=== PATIENT | female | born 1985 | race Caucasian/White ===

== ENCOUNTER → 2016-08-25 | Outpatient (CLI) | payer OTHER ==
[~2016-08-25] MED LIST: CITALOPRAM20 MG PO; CITALOPRAM40 MG PO; IBU800 M1 PO; KLONOPIN 0.5MG0.5 MG PO; PREDNISONE20 MG PO
== END ==
LOC: LAB 19:34
DX: R30.0 Dysuria (principal); B96.20 Unspecified Escherichia coli [E. coli] as the cause of diseases classified elsewhere

== ENCOUNTER → 2016-09-15 | Outpatient (CLI) | payer OTHER ==
[2016-01-31 22:38] VITALS: BP 130/76
== END ==
LOC: RAD 19:44
DX: R07.82 Intercostal pain (principal)

== ENCOUNTER 2016-09-28 13:15 | Emergency (ER) | payer OTHER ==
[~2016-09-28 13:15] MED LIST changes: -CITALOPRAM40 MG PO; -IBU800 M1 PO; -KLONOPIN 0.5MG0.5 MG PO
[2016-09-28] MEDS ORDERED: IBU800 M1 PO (15:41)
[2016-09-28] MEDS ORDERED: CITALOPRAM40 MG PO (15:41)
[2016-09-28] MEDS ORDERED: KLONOPIN 0.5MG0.5 MG PO (15:41)
[2016-09-28 16:02] VITALS: BP 132/87
== END 2016-09-28 15:46 | disposition home or self-care (01) ==
LOC: ED 13:15
DX: F41.9 Anxiety disorder, unspecified (principal); M94.0 Chondrocostal junction syndrome [Tietze]; R07.89 Other chest pain

== ENCOUNTER → 2017-03-31 | Outpatient (CLI) | payer OTHER ==
[~2017-03-31] MED LIST changes: +BACTRIM 400 MG-1 TA1 PO; +CITALOPRAM40 MG PO; +IBU800 M1 PO; +KLONOPIN 0.5MG0.5 MG PO
[2017-03-31 14:30] LABS: EOS # 0.2 (0.04-0.40); EOS % 1.6 % (1.0-5.0); HEMATOCRIT 41.4 % (37.0-47.0); HEMOGLOBIN 13.9 g/dL (12.5-16.0); LYMPH# 1.9 (1.50-4.00); MEAN CELL VOLUME 92 fl (78-100); MEAN CORPUSCULAR HEMOGLOBIN 31 pg (27-31); MEAN CORPUSCULAR HGB CONC 34 g/dL (33-37); MEAN PLATELET VOLUME 10.1 fl (7.4-10.4); MONO # 0.9 (0.20-0.80); PLATELET COUNT 264 K/mm3 (130-400); RED CELL DISTRIBUTION WIDTH 13.6 % (11.5-14.5); WHITE BLOOD COUNT 11.1 K/mm3 (4.8-10.8)
[2017-03-31 14:47] LABS: ALBUMIN 4.3 g/dL (3.5-5.0); BUN/CREATININE RATIO 18.1 (6.0-26.0); CALCIUM 9.9 mg/dL (8.4-10.2); POTASSIUM 3.9 mmol/L (3.6-5.0); TOTAL BILIRUBIN 0.5 mg/dL (0.2-1.3); TOTAL PROTEIN 7.5 g/dL (6.3-8.2)
== END ==
LOC: LAB 14:17
PROVIDERS: Internal Medicine
DX: J45.909 Unspecified asthma, uncomplicated (principal); R00.0 Tachycardia, unspecified; J01.90 Acute sinusitis, unspecified; J20.9 Acute bronchitis, unspecified

== ENCOUNTER → 2017-04-01 | Outpatient (CLI) | payer OTHER ==
[~2017-04-01] VITALS: Ht 157.5 cm; Wt 86.4 kg
[2017-04-01 22:42] VITALS: BP 111/71
== END ==
LOC: AMSURD 22:42
DX: R00.0 Tachycardia, unspecified (principal)

== ENCOUNTER → 2017-06-30 | Outpatient (CLI) | payer SELFPAY ==
[2017-04-01 22:42] VITALS: BP 111/71
== END ==
LOC: CANPRECLI → LAB 18:57
DX: Z01.89 Encounter for other specified special examinations (principal)

== ENCOUNTER → 2017-07-05 | Outpatient (CLI) | payer SELFPAY ==
[2017-04-01 22:42] VITALS: BP 111/71
[2017-07-06 12:41] LABS: C-REACTIVE PROTEIN XXX
[2017-07-07 00:56] LABS: ANA SCREEN with REFLEX Negative (Negative)
[2017-07-07 12:50] LABS: LYME DISEASE ANTIBODIES Negative (Negative)
== END ==
LOC: LAB 17:53
PROVIDERS: Internal Medicine
DX: R20.2 Paresthesia of skin (principal); R53.83 Other fatigue; M79.1 Myalgia

== ENCOUNTER → 2017-09-19 | Outpatient (CLI) | payer SELFPAY ==
[2017-04-01 22:42] VITALS: BP 111/71
== END ==
LOC: LAB 15:49
DX: K90.89 Other intestinal malabsorption (principal); R30.0 Dysuria; Z88.1 Allergy status to other antibiotic agents

== ENCOUNTER → 2018-09-26 | Outpatient (CLI) | payer BC ==
[2017-11-14 18:38] VITALS: BP 118/70
[~2018-09-26] MED LIST changes: +CELEXA 20MG20 MG/TA1 PO; -CITALOPRAM20 MG PO; +MACROBID 100 M100 MG PO; +NEURONTIN300 M1 PO; +TYLENOL 500MG500 MG PO
[2018-09-26 18:41] LABS: ALBUMIN 4.2 g/dL (3.5-5.0); CALCIUM 9.6 mg/dL (8.4-10.2); POTASSIUM 3.8 mmol/L (3.5-5.1); TOTAL BILIRUBIN 0.3 mg/dL (0.2-1.2)
== END ==
LOC: LAB 16:43
PROVIDERS: Internal Medicine
DX: K90.9 Intestinal malabsorption, unspecified (principal); R07.81 Pleurodynia; M79.10 Myalgia, unspecified site; R20.2 Paresthesia of skin; R53.83 Other fatigue; W19.XXXA Unspecified fall, initial encounter

== ENCOUNTER → 2018-11-28 | Outpatient (CLI) | payer BC ==
[2017-11-14 18:38] VITALS: BP 118/70
[~2018-11-28] MED LIST changes: +KLONOPIN 1MG1 MG PO; +VENLAFAXINE HCL75 M3 PO
[2018-11-28 14:53] LABS: EOS # 0.1 (0.04-0.40); EOS % 1.2 % (1.0-5.0); HEMATOCRIT 39.4 % (37.0-47.0); HEMOGLOBIN 12.7 g/dL (12.5-16.0); LYMPH# 2.4 (1.50-4.00); MEAN CELL VOLUME 97 fl (78-100); MEAN CORPUSCULAR HEMOGLOBIN 31 pg (27-31); MEAN CORPUSCULAR HGB CONC 32 g/dL (33-37); MEAN PLATELET VOLUME 9.8 fl (7.4-10.4); MONO # 0.6 (0.20-0.80); NEU # 5.9 (1.40-6.50); PLATELET COUNT 281 K/mm3 (130-400); RED BLOOD COUNT 4.07 M/mm3 (4.10-5.30); RED CELL DISTRIBUTION WIDTH 13.6 % (11.5-14.5)
[2018-11-28 15:13] LABS: PARTIAL THROMBOPLASTIN TIME 25.1 SECONDS (21.0-32.0); PROTHROMBIN TIME 9.1 SECONDS (9.0-12.0)
[2018-11-28 16:13] LABS: ERYTHROCYTE SEDIMENTATION RATE 10 mm/hr (0-20)
== END ==
LOC: LAB 14:33
PROVIDERS: Internal Medicine
DX: R23.3 Spontaneous ecchymoses (principal)

== ENCOUNTER 2019-01-24 16:00 | Outpatient (RCR) | payer BC ==
[2017-11-14 18:38] VITALS: BP 118/70
== END 2019-01-24 16:30 | disposition still patient (30) ==
LOC: PT 16:00
DX: M79.7 Fibromyalgia (principal); M54.5 Low back pain; R53.1 Weakness

== ENCOUNTER → 2019-03-23 | Outpatient (CLI) | payer BC ==
[2018-12-04 17:12] VITALS: BP 112/60
[2019-03-23 14:21] LABS: EOS # 0.1 (0.04-0.40); EOS % 0.8 % (1.0-5.0); HEMATOCRIT 41.8 % (37.0-47.0); HEMOGLOBIN 13.8 g/dL (12.5-16.0); LYMPH# 2.3 (1.50-4.00); MEAN CELL VOLUME 94 fl (78-100); MEAN CORPUSCULAR HEMOGLOBIN 31 pg (27-31); MEAN CORPUSCULAR HGB CONC 33 g/dL (33-37); MEAN PLATELET VOLUME 9.8 fl (7.4-10.4); MONO # 0.6 (0.20-0.80); NEU # 4.7 (1.40-6.50); PLATELET COUNT 296 K/mm3 (130-400); RED BLOOD COUNT 4.43 M/mm3 (4.10-5.30); RED CELL DISTRIBUTION WIDTH 13.1 % (11.5-14.5); WHITE BLOOD COUNT 7.7 K/mm3 (4.8-10.8)
[2019-03-23 14:28] LABS: ALBUMIN 4.3 g/dL (3.5-5.0); POTASSIUM 3.8 mmol/L (3.5-5.1)
[2019-03-23 14:30] LABS: CALCIUM 9.4 mg/dL (8.3-10.5)
[2019-03-23 14:31] LABS: TOTAL PROTEIN 7.4 g/dL (6.4-8.3)
[2019-03-23 14:33] LABS: TOTAL BILIRUBIN 0.2 mg/dL (0.2-1.2)
== END ==
LOC: LAB 14:03
PROVIDERS: Internal Medicine
DX: F41.0 Panic disorder [episodic paroxysmal anxiety] (principal); M79.7 Fibromyalgia; J45.909 Unspecified asthma, uncomplicated

== ENCOUNTER → 2019-03-30 | Outpatient (CLI) | payer BC ==
[2018-12-04 17:12] VITALS: BP 112/60
== END ==
LOC: RAD 14:23
DX: R06.02 Shortness of breath (principal); R05 Cough

== ENCOUNTER 2019-09-02 13:30 | Emergency (ER) | payer SELFPAY ==
[~2019-09-02 13:30] MED LIST changes: +AMBIEN5 M1 PO; +BENZTROPINE1 MG PO; +GABAPENTIN TAB600 MG PO; +INDERAL 10MG10 MG PO; +NALTREXONE HYDR50 MG; +REMERON15 MG PO; -TYLENOL 500MG500 MG PO; +TYLENOL EXTRA500 M2 PO; +ULTRAM50 M1 PO
[2019-09-02] MEDS ORDERED: ATIVAN1 M1 PO (13:49)
[2019-09-02] MEDS ORDERED: VRAYLAR1.5 MG PO (13:53)
[2019-09-02] MEDS ORDERED: NALTREXONE (13:55)
[2019-09-02] MEDS ORDERED: TRIAZOLAM0.125 MG PO (13:58)
[2019-09-02 15:14] VITALS: BP 126/78
== END 2019-09-02 15:14 | disposition home or self-care (01) ==
LOC: ED 13:30
DX: F41.0 Panic disorder [episodic paroxysmal anxiety] (principal); F17.210 Nicotine dependence, cigarettes, uncomplicated

== ENCOUNTER → 2019-09-14 | Outpatient (CLI) | payer SELFPAY ==
[2019-09-02 15:14] VITALS: BP 126/78
[~2019-09-14] MED LIST changes: +ATIVAN1 M1 PO; +NALTREXONE; +TRIAZOLAM0.125 MG PO; +VRAYLAR1.5 MG PO
== END ==
LOC: LAB 12:50
DX: K90.9 Intestinal malabsorption, unspecified (principal); M79.10 Myalgia, unspecified site; R20.2 Paresthesia of skin; R53.83 Other fatigue

== ENCOUNTER 2019-09-22 12:18 | Emergency (ER) | payer SELFPAY ==
[~2019-09-22] VITALS: Ht 157.5 cm; Wt 76.6 kg
[2019-09-22 13:24] LABS: EOS % 0.3 % (1.0-5.0); HEMATOCRIT 41.4 % (37.0-47.0); HEMOGLOBIN 13.3 g/dL (12.5-16.0); LYMPH# 1.7 (1.50-4.00); MEAN CELL VOLUME 95 fl (78-100); MEAN CORPUSCULAR HEMOGLOBIN 31 pg (27-31); MEAN CORPUSCULAR HGB CONC 32 g/dL (33-37); MEAN PLATELET VOLUME 10.2 fl (7.4-10.4); MONO # 0.7 (0.20-0.80); PLATELET COUNT 268 K/mm3 (130-400); RED BLOOD COUNT 4.34 M/mm3 (4.10-5.30); RED CELL DISTRIBUTION WIDTH 14.3 % (11.5-14.5); WHITE BLOOD COUNT 11.7 K/mm3 (4.8-10.8)
[2019-09-22 13:26] LABS: POTASSIUM 3.9 mmol/L (3.5-5.1)
[2019-09-22 13:27] LABS: CALCIUM 9.6 mg/dL (8.3-10.5)
[2019-09-22 13:36] LABS: URINE COLOR LT YELLOW
[2019-09-22 13:36] LABS: NEU # 9.3 (1.40-6.50)
[2019-09-22 13:37] LABS: PH-URINE 5.5 (5.0 - 8.0); URINE APPEARANCE CLEAR; URINE BILIRUBIN NEGATIVE (NEGATIVE); URINE BLOOD NEGATIVE (NEGATIVE); URINE GLUCOSE NEGATIVE (NEGATIVE); URINE KETONE NEGATIVE (NEGATIVE); URINE LEUKOCYTE ESTERASE TRACE (NEGATIVE); URINE NITRATE NEGATIVE (NEGATIVE); URINE PROTEIN(semi-quant) NEGATIVE (NEGATIVE); URINE UROBILINOGEN NORMAL (NORMAL)
[2019-09-22] MEDS ORDERED: SEPTRA DS 8001 TAB PO (13:54)
[2019-09-22 14:13] VITALS: BP 167/88
== END 2019-09-22 14:15 | disposition home or self-care (01) ==
LOC: ED 12:18
PROVIDERS: Family Medicine
DX: M94.0 Chondrocostal junction syndrome [Tietze] (principal); F41.9 Anxiety disorder, unspecified; N39.0 Urinary tract infection, site not specified; M79.7 Fibromyalgia; F17.210 Nicotine dependence, cigarettes, uncomplicated

== ENCOUNTER → 2019-10-08 | Outpatient (CLI) | payer SELFPAY ==
[2019-09-22 14:13] VITALS: BP 167/88
[~2019-10-08] MED LIST changes: +SEPTRA DS 8001 TAB PO
== END ==
LOC: LAB 14:21
DX: K90.9 Intestinal malabsorption, unspecified (principal)

== ENCOUNTER 2019-10-23 14:01 | Emergency (ER) | payer OTHER ==
[~2019-10-23] VITALS: Ht 162.6 cm; Wt 70.9 kg
[2019-10-23] MEDS ORDERED: INGREZZA40 MG PO (14:19)
[2019-10-23] MEDS ORDERED: FLUVOXAMINE50 MG PO (14:20)
[2019-10-23 15:35] LABS: HEMATOCRIT 38.1 % (37.0-47.0); HEMOGLOBIN 12.3 g/dL (12.5-16.0); MEAN CELL VOLUME 97 fl (78-100); MEAN CORPUSCULAR HEMOGLOBIN 31 pg (27-31); MEAN CORPUSCULAR HGB CONC 32 g/dL (33-37); MEAN PLATELET VOLUME 10.2 fl (7.4-10.4); PLATELET COUNT 248 K/mm3 (130-400); RED BLOOD COUNT 3.94 M/mm3 (4.10-5.30); RED CELL DISTRIBUTION WIDTH 14.4 % (11.5-14.5); WHITE BLOOD COUNT 17.2 K/mm3 (4.8-10.8)
[2019-10-23 15:39] LABS: ALBUMIN 4.2 g/dL (3.5-5.0); POTASSIUM 3.3 mmol/L (3.5-5.1)
[2019-10-23 15:41] LABS: CALCIUM 9.3 mg/dL (8.3-10.5)
[2019-10-23 15:42] LABS: TOTAL PROTEIN 6.4 g/dL (6.4-8.3)
[2019-10-23 15:44] LABS: TOTAL BILIRUBIN 0.2 mg/dL (0.2-1.2)
[2019-10-23 16:19] LABS: PH-URINE 5.5 (5.0 - 8.0); URINE APPEARANCE CLOUDY; URINE BILIRUBIN NEGATIVE (NEGATIVE); URINE BLOOD TRACE (NEGATIVE); URINE COLOR YELLOW; URINE GLUCOSE NEGATIVE (NEGATIVE); URINE KETONE NEGATIVE (NEGATIVE); URINE LEUKOCYTE ESTERASE 2+ (NEGATIVE); URINE NITRATE NEGATIVE (NEGATIVE); URINE PROTEIN(semi-quant) NEGATIVE (NEGATIVE); URINE UROBILINOGEN NORMAL (NORMAL); URINE WBC >50 /hpf (0-3)
[2019-10-23 16:20] LABS: LYMPHOCYTE 12 % (20-51); MONOCYTE 3 % (3-10); NEUTROPHILS 84 % (42-75)
[2019-10-23 16:20] LABS: URINE MUCUS PRESENT (NOT PRESENT)
[2019-10-23] MEDS ORDERED: MACROBID 100 M100 MG PO (17:26)
[2019-10-23] MEDS ORDERED: K-TAB20 MEQ PO (17:26)
[2019-10-23 17:32] VITALS: BP 148/68
== END 2019-10-23 17:32 | disposition home or self-care (01) ==
LOC: ED 14:01
PROVIDERS: Nurse Practitioner Family
DX: N39.0 Urinary tract infection, site not specified (principal); T50.915A Adverse effect of multiple unspecified drugs, medicaments and biological substances, initial encounter; G25.79 Other drug induced movement disorders; R53.1 Weakness; E87.6 Hypokalemia; J45.909 Unspecified asthma, uncomplicated; F31.9 Bipolar disorder, unspecified; F41.9 Anxiety disorder, unspecified; M79.7 Fibromyalgia; F17.210 Nicotine dependence, cigarettes, uncomplicated; Z88.0 Allergy status to penicillin

== ENCOUNTER 2019-11-04 17:37 | Emergency (ER) | payer OTHER ==
[~2019-11-04 17:37] MED LIST changes: +FLUVOXAMINE50 MG PO; +INGREZZA40 MG PO; +K-TAB20 MEQ PO
[2019-11-04 18:57] VITALS: BP 125/79
== END 2019-11-04 19:00 | disposition home or self-care (01) ==
LOC: ED 17:37
DX: K64.5 Perianal venous thrombosis (principal); F41.0 Panic disorder [episodic paroxysmal anxiety]; M79.7 Fibromyalgia; F17.210 Nicotine dependence, cigarettes, uncomplicated; Z79.891 Long term (current) use of opiate analgesic

== ENCOUNTER → 2019-12-19 | Outpatient (CLI) | payer SELFPAY ==
[2019-12-19 13:21] LABS: EOS # 0.1 (0.04-0.40); EOS % 0.4 % (1.0-5.0); HEMATOCRIT 41.3 % (37.0-47.0); HEMOGLOBIN 13.8 g/dL (12.5-16.0); LYMPH# 1.9 (1.50-4.00); MEAN CELL VOLUME 96 fl (78-100); MEAN CORPUSCULAR HEMOGLOBIN 32 pg (27-31); MEAN CORPUSCULAR HGB CONC 33 g/dL (33-37); MEAN PLATELET VOLUME 10.4 fl (7.4-10.4); MONO # 0.7 (0.20-0.80); PLATELET COUNT 270 K/mm3 (130-400); RED BLOOD COUNT 4.31 M/mm3 (4.10-5.30); RED CELL DISTRIBUTION WIDTH 13.5 % (11.5-14.5); WHITE BLOOD COUNT 11.7 K/mm3 (4.8-10.8)
[2019-12-19 13:36] LABS: ALBUMIN 4.3 g/dL (3.5-5.0)
[2019-12-19 13:37] LABS: POTASSIUM 3.1 mmol/L (3.5-5.1)
[2019-12-19 13:38] LABS: CALCIUM 9.1 mg/dL (8.3-10.5)
[2019-12-19 13:39] LABS: TOTAL PROTEIN 7.2 g/dL (6.4-8.3)
[2019-12-19 13:41] LABS: TOTAL BILIRUBIN 0.2 mg/dL (0.2-1.2)
[2019-12-19 14:03] LABS: URINE APPEARANCE HAZY; URINE COLOR YELLOW; URINE PROTEIN(semi-quant) TRACE mg/dL (NEGATIVE)
[2019-12-19 14:04] LABS: URINE BILIRUBIN NEGATIVE (NEGATIVE); URINE BLOOD NEGATIVE (NEGATIVE); URINE GLUCOSE NEGATIVE (NEGATIVE); URINE KETONE NEGATIVE (NEGATIVE); URINE LEUKOCYTE ESTERASE TRACE (NEGATIVE); URINE MUCUS PRESENT (NOT PRESENT); URINE NITRATE NEGATIVE (NEGATIVE); URINE UROBILINOGEN NORMAL (NORMAL)
[2019-12-19 14:25] LABS: ERYTHROCYTE SEDIMENTATION RATE 9 mm/hr (0-20)
== END ==
LOC: LAB 13:02
PROVIDERS: Internal Medicine
DX: J45.909 Unspecified asthma, uncomplicated (principal); K90.89 Other intestinal malabsorption; R63.4 Abnormal weight loss; N39.0 Urinary tract infection, site not specified

== ENCOUNTER → 2020-01-21 | Outpatient (CLI) | payer OTHER ==
[2020-01-21 17:41] LABS: PH-URINE 5.5 (5.0 - 8.0); URINE APPEARANCE CLEAR; URINE BILIRUBIN NEGATIVE (NEGATIVE); URINE BLOOD NEGATIVE (NEGATIVE); URINE COLOR YELLOW; URINE GLUCOSE NEGATIVE (NEGATIVE); URINE KETONE NEGATIVE (NEGATIVE); URINE LEUKOCYTE ESTERASE NEGATIVE (NEGATIVE); URINE NITRATE NEGATIVE (NEGATIVE); URINE PROTEIN(semi-quant) TRACE mg/dL (NEGATIVE); URINE UROBILINOGEN NORMAL (NORMAL)
== END ==
LOC: LAB 17:13
PROVIDERS: Internal Medicine
DX: J45.909 Unspecified asthma, uncomplicated (principal); K90.9 Intestinal malabsorption, unspecified; N39.0 Urinary tract infection, site not specified; R42 Dizziness and giddiness; R63.4 Abnormal weight loss

== ENCOUNTER 2021-02-06 16:54 | Emergency (ER) | payer SELFPAY ==
[~2021-02-06] VITALS: Ht 154.9 cm; Wt 100.0 kg
[2021-02-06 17:36] LABS: URINE WBC 0 /hpf (0-3)
[2021-02-06 17:40] LABS: BASO # 0.04 (0.02-0.10); EOS # 0.03 (0.04-0.40); EOS % 0.2 % (1.0-5.0); HEMATOCRIT 46.5 % (37.0-47.0); HEMOGLOBIN 15.3 g/dL (12.5-16.0); MEAN CELL VOLUME 95 fl (78-100); MEAN CORPUSCULAR HEMOGLOBIN 31 pg (27-31); MEAN CORPUSCULAR HGB CONC 33 g/dL (33-37); MEAN PLATELET VOLUME 9.7 fl (7.4-10.4); MONO # 0.66 (0.20-0.80); NEU # 11.94 (1.40-6.50); PLATELET COUNT 301 K/mm3 (130-400); RED BLOOD COUNT 4.88 M/mm3 (4.10-5.30); WHITE BLOOD COUNT 14.5 K/mm3 (4.8-10.8)
[2021-02-06 17:51] LABS: POTASSIUM 3.6 mmol/L (3.5-5.1); SODIUM 138 mmol/L (136-145)
[2021-02-06 17:53] LABS: ALBUMIN 4.3 g/dL (3.5-5.0)
[2021-02-06 17:54] LABS: CALCIUM 10.2 mg/dL (8.3-10.5); GLUCOSE 105 mg/dL (65-105)
[2021-02-06 17:55] LABS: CARBON DIOXIDE 21 mmol/L (22-29); TOTAL PROTEIN 7.6 g/dL (6.4-8.3)
[2021-02-06 17:56] LABS: TOTAL BILIRUBIN 0.2 mg/dL (0.2-1.2)
[2021-02-06 17:59] LABS: AST-SGOT 14 U/L (5-34)
[2021-02-06 18:00] LABS: ALT/SGPT 12 U/L (0-55)
[2021-02-06 18:03] LABS: URINE APPEARANCE CLEAR; URINE BILIRUBIN NEGATIVE (NEGATIVE); URINE BLOOD NEGATIVE (NEGATIVE); URINE COLOR YELLOW; URINE GLUCOSE NEGATIVE (NEGATIVE); URINE KETONE NEGATIVE (NEGATIVE); URINE LEUKOCYTE ESTERASE NEGATIVE (NEGATIVE); URINE NITRATE NEGATIVE (NEGATIVE); URINE PROTEIN(semi-quant) TRACE mg/dL (NEGATIVE); URINE UROBILINOGEN NORMAL (NORMAL)
[2021-02-06 18:16] LABS: TROPONIN-I < 0.03 ng/mL (<0.030)
[2021-02-06] MEDS ORDERED: ULTRAM50 M1 PO (18:21)
[2021-02-06] MEDS ORDERED: ZYPREXA 5MG5 MG PO (18:21)
[2021-02-06] MEDS ORDERED: NEURONTIN600 M1 PO (18:23)
[2021-02-06] MEDS ORDERED: ONE-DAILY MULT1 EAC1 PO (18:24)
[2021-02-06] MEDS ORDERED: VITAMIN D310 MC2 PO (18:25)
[2021-02-06] MEDS ORDERED: METOPROLOL SUCC25 M1 PO (19:31)
[2021-02-06 19:39] VITALS: BP 128/84
== END 2021-02-06 19:57 | disposition home or self-care (01) ==
LOC: ED 16:54
PROVIDERS: Family Medicine
DX: R00.0 Tachycardia, unspecified (principal); M79.7 Fibromyalgia; F41.9 Anxiety disorder, unspecified; F32.9 Major depressive disorder, single episode, unspecified; Z79.899 Other long term (current) drug therapy; Z79.1 Long term (current) use of non-steroidal anti-inflammatories (NSAID)
CPT/HCPCS: J7030

== ENCOUNTER → 2021-03-23 | Outpatient (CLI) | payer SELFPAY ==
[~2021-03-23] MED LIST changes: +METOPROLOL SUCC25 M1 PO; +NEURONTIN600 M1 PO; +ONE-DAILY MULT1 EAC1 PO; +VITAMIN D310 MC2 PO; +ZYPREXA 5MG5 MG PO
[2021-03-23 15:49] LABS: URINE APPEARANCE CLEAR; URINE BILIRUBIN NEGATIVE (NEGATIVE); URINE BLOOD NEGATIVE (NEGATIVE); URINE COLOR YELLOW; URINE GLUCOSE NEGATIVE (NEGATIVE); URINE KETONE NEGATIVE (NEGATIVE); URINE NITRATE NEGATIVE (NEGATIVE); URINE PROTEIN(semi-quant) TRACE mg/dL (NEGATIVE); URINE UROBILINOGEN NORMAL (NORMAL)
[2021-03-23 15:50] LABS: URINE LEUKOCYTE ESTERASE TRACE (NEGATIVE); URINE MUCUS PRESENT (NOT PRESENT)
== END ==
LOC: LAB 14:45
PROVIDERS: Internal Medicine
DX: N39.0 Urinary tract infection, site not specified (principal)

== ENCOUNTER → 2021-09-21 | Outpatient (CLI) | payer SELFPAY ==
[2021-09-21 13:15] LABS: BASO # 0.02 K/mm3 (0.02-0.10); EOS # 0.01 K/mm3 (0.04-0.40); EOS % 0.1 % (1.0-5.0); HEMATOCRIT 40.8 % (37.0-47.0); HEMOGLOBIN 13.5 g/dL (12.5-16.0); LYMPH# 1.58 K/mm3 (1.50-4.00); MEAN CELL VOLUME 95 fl (78-100); MEAN CORPUSCULAR HEMOGLOBIN 31 pg (27-31); MEAN CORPUSCULAR HGB CONC 33 g/dL (33-37); MONO # 0.56 K/mm3 (0.20-0.80); PLATELET COUNT 303 K/mm3 (130-400); WHITE BLOOD COUNT 11.5 K/mm3 (4.8-10.8)
[2021-09-21 13:19] LABS: ALBUMIN 4.6 g/dL (3.5-5.0); POTASSIUM 3.7 mmol/L (3.5-5.1)
[2021-09-21 13:20] LABS: CALCIUM 9.9 mg/dL (8.3-10.5)
[2021-09-21 13:21] LABS: TOTAL PROTEIN 7.4 g/dL (6.4-8.3)
[2021-09-21 13:23] LABS: TOTAL BILIRUBIN 0.2 mg/dL (0.2-1.2)
[2021-09-21 13:25] LABS: D-DIMER 0.27 mg/L FEU (0.15-0.50)
== END ==
LOC: LAB 12:56
PROVIDERS: Nurse Practitioner
DX: R00.0 Tachycardia, unspecified (principal); R06.00 Dyspnea, unspecified

== ENCOUNTER → 2021-10-10 | Outpatient (CLI) | payer SELFPAY ==
[2021-10-10 13:06] LABS: BASO # 0.03 K/mm3 (0.02-0.10); EOS # 0.01 K/mm3 (0.04-0.40); EOS % 0.1 % (1.0-5.0); HEMOGLOBIN 13.6 g/dL (12.5-16.0); LYMPH# 1.03 K/mm3 (1.50-4.00); MEAN CELL VOLUME 95 fl (78-100); MEAN CORPUSCULAR HEMOGLOBIN 32 pg (27-31); MEAN CORPUSCULAR HGB CONC 33 g/dL (33-37); MONO # 0.28 K/mm3 (0.20-0.80); NEU # 16.44 K/mm3 (1.40-6.50); PLATELET COUNT 327 K/mm3 (130-400); RED CELL DISTRIBUTION WIDTH 12.4 % (11.5-14.5); WHITE BLOOD COUNT 17.8 K/mm3 (4.8-10.8)
[2021-10-10 13:17] LABS: ALBUMIN 4.3 g/dL (3.5-5.0); POTASSIUM 3.9 mmol/L (3.5-5.1)
[2021-10-10 13:20] LABS: TOTAL PROTEIN 6.8 g/dL (6.4-8.3)
[2021-10-10 13:22] LABS: TOTAL BILIRUBIN 0.2 mg/dL (0.2-1.2)
[2021-10-10 13:35] LABS: D-DIMER 0.12 mg/L FEU (0.15-0.50)
[2021-10-10 14:21] LABS: ERYTHROCYTE SEDIMENTATION RATE 5 mm/hr (0-20)
== END ==
LOC: LAB 12:33
PROVIDERS: Internal Medicine
DX: R06.00 Dyspnea, unspecified (principal)

== ENCOUNTER → 2021-10-16 | Outpatient (CLI) | payer SELFPAY | LOC: RAD 13:11 | DX: R06.00 Dyspnea, unspecified (principal) ==

== ENCOUNTER → 2021-11-02 | Outpatient (CLI) | payer SELFPAY | LOC: RAD 15:08 | DX: J01.90 Acute sinusitis, unspecified (principal); K22.89 Other specified disease of esophagus ==

== ENCOUNTER → 2021-12-07 | Outpatient (CLI) | payer SELFPAY ==
[2021-12-07 17:38] LABS: ALBUMIN 4.1 g/dL (3.5-5.0)
[2021-12-07 17:39] LABS: POTASSIUM 3.5 mmol/L (3.5-5.1)
[2021-12-07 17:41] LABS: TOTAL PROTEIN 5.9 g/dL (6.4-8.3)
[2021-12-07 17:43] LABS: TOTAL BILIRUBIN 0.2 mg/dL (0.2-1.2)
== END ==
LOC: LAB 16:48
PROVIDERS: Nurse Practitioner Family
DX: U07.1 COVID-19 (principal)

== ENCOUNTER → 2021-12-23 | Outpatient (CLI) | payer OTHER ==
[2021-12-23 17:53] LABS: URINE APPEARANCE CLEAR; URINE BILIRUBIN NEGATIVE (NEGATIVE); URINE BLOOD NEGATIVE (NEGATIVE); URINE COLOR YELLOW; URINE GLUCOSE NEGATIVE (NEGATIVE); URINE KETONE NEGATIVE (NEGATIVE); URINE NITRATE NEGATIVE (NEGATIVE); URINE PROTEIN(semi-quant) NEGATIVE (NEGATIVE); URINE UROBILINOGEN NORMAL (NORMAL)
[2021-12-23 17:54] LABS: URINE LEUKOCYTE ESTERASE TRACE (NEGATIVE); URINE MUCUS PRESENT (NOT PRESENT); URINE WBC 0-1 /hpf (0-3)
== END ==
LOC: LAB 16:44
PROVIDERS: Internal Medicine
DX: R30.9 Painful micturition, unspecified (principal)

== ENCOUNTER → 2022-08-21 | Outpatient (CLI) | payer SELFPAY ==
[2022-08-21 12:42] LABS: URINE APPEARANCE HAZY; URINE BILIRUBIN NEGATIVE (NEGATIVE); URINE BLOOD NEGATIVE (NEGATIVE); URINE COLOR YELLOW; URINE GLUCOSE NEGATIVE (NEGATIVE); URINE KETONE NEGATIVE (NEGATIVE); URINE LEUKOCYTE ESTERASE TRACE (NEGATIVE); URINE NITRATE NEGATIVE (NEGATIVE); URINE PROTEIN(semi-quant) TRACE (NEGATIVE); URINE UROBILINOGEN NORMAL (NORMAL)
== END ==
LOC: LAB 12:22
PROVIDERS: Internal Medicine
DX: N39.0 Urinary tract infection, site not specified (principal)

== ENCOUNTER 2024-01-02 12:09 | Emergency (ER) | payer BC ==
[~2024-01-02] VITALS: Ht 162.6 cm; Wt 109.5 kg
[2024-01-02 13:19] LABS: BASO # 0.04 K/mm3 (0.02-0.10); EOS # 0.03 K/mm3 (0.04-0.40); EOS % 0.4 % (1.0-5.0); HEMATOCRIT 42.6 % (37.0-47.0); HEMOGLOBIN 13.5 g/dL (12.5-16.0); LYMPH# 1.23 K/mm3 (1.50-4.00); MEAN CELL VOLUME 95 fl (78-100); MEAN CORPUSCULAR HEMOGLOBIN 30 pg (27-31); MEAN CORPUSCULAR HGB CONC 32 g/dL (33-37); MEAN PLATELET VOLUME 10.1 fl (7.4-10.4); NEU # 6.17 K/mm3 (1.40-6.50); PLATELET COUNT 265 K/mm3 (130-400); RED BLOOD COUNT 4.48 M/mm3 (4.10-5.30); RED CELL DISTRIBUTION WIDTH 12.3 % (11.5-14.5); WHITE BLOOD COUNT 7.8 K/mm3 (4.8-10.8)
[2024-01-02 13:24] LABS: ALBUMIN 4.4 g/dL (3.5-5.0); SODIUM 141 mmol/L (136-145)
[2024-01-02 13:26] LABS: CALCIUM 9.7 mg/dL (8.3-10.5)
[2024-01-02 13:27] LABS: GLUCOSE 134 mg/dL (65-105); TOTAL PROTEIN 7.1 g/dL (6.4-8.3)
[2024-01-02 13:28] LABS: CARBON DIOXIDE 22 mmol/L (22-29)
[2024-01-02 13:29] LABS: TOTAL BILIRUBIN 0.2 mg/dL (0.2-1.2)
[2024-01-02 13:32] LABS: AST-SGOT 13 U/L (5-34)
[2024-01-02 13:33] LABS: ALT/SGPT 18 U/L (0-55)
[2024-01-02 13:35] LABS: D-DIMER 0.36 mg/L FEU (0.15-0.50)
[2024-01-02 13:40] LABS: TROPONIN-I < 0.030 ng/mL (0.00-0.033)
[2024-01-02 14:05] VITALS: BP 117/79
== END 2024-01-02 14:05 | disposition home or self-care (01) ==
LOC: ED 12:09
PROVIDERS: Physician Assistant
DX: R00.2 Palpitations (principal)

== ENCOUNTER → 2024-07-05 | Outpatient (CLI) | payer BC ==
[2024-07-05 17:11] LABS: PH-URINE 5.5 (5.0 - 8.0); URINE APPEARANCE CLEAR (CLEAR); URINE BILIRUBIN NEGATIVE (NEGATIVE); URINE BLOOD 2+ (NEGATIVE); URINE COLOR LIGHT YELLOW (YELLOW); URINE GLUCOSE NEGATIVE (NEGATIVE); URINE KETONE NEGATIVE (NEGATIVE); URINE LEUKOCYTE ESTERASE NEGATIVE (NEGATIVE); URINE NITRATE NEGATIVE (NEGATIVE); URINE PROTEIN(semi-quant) NEGATIVE (NEGATIVE); URINE WBC 0-1 /hpf (0-3)
== END ==
LOC: LAB 16:34
PROVIDERS: Internal Medicine
DX: N39.0 Urinary tract infection, site not specified (principal)